=== PATIENT | female | born 1970 | race Caucasian/White ===

== ENCOUNTER 2018-02-24 08:41 | Emergency (ER) | payer MEDICAID, OTHER, SELFPAY ==
[~2018-02-24] VITALS: Ht 157.5 cm; Wt 115.3 kg
[2018-02-24 08:46] VITALS: BP 138/100
== END 2018-02-24 09:58 | disposition home or self-care (01) ==
LOC: ED 09:52
DX: R53.1 Weakness (principal); R09.02 Hypoxemia
CPT/HCPCS: 93005; 99283

== ENCOUNTER 2018-05-02 11:27 | Emergency (ER) | payer OTHER ==
[~2018-05-02] VITALS: Ht 157.5 cm; Wt 118.6 kg
[2018-05-02] MEDS ORDERED: IBUPROFEN 200 MG TABLET ONE (12:16)
[2018-05-02 12:25] LABS: BASOPHILS # (AUTO) 0.04 x10^3/uL (0-0.1); BASOPHILS % (AUTO) 1 % (0-1); EOSINOPHILS # (AUTO) 0.29 x10^3/uL (0-0.4); EOSINOPHILS % (AUTO) 4 % (1-7); LYMPHOCYTES # (AUTO) 2.57 x10^3/uL (1-3.4); LYMPHOCYTES % (AUTO) 33 % (22-44); MD NO; MEAN CORPUSCULAR HEMOGLOBIN 29.3 pg (27.0-34.8); MEAN CORPUSCULAR HGB CONC 33.6 g/dL (32.4-35.8); MEAN CORPUSCULAR VOLUME 87.1 fL (80-100); MEAN PLATELET VOLUME 9.4 fL (7.4-10.4); MONOCYTES # (AUTO) 0.45 x10^3/uL (0.2-0.8); MONOCYTES % (AUTO) 6 % (2-9); NEUTROPHILS # (AUTO) 4.55 x10^3/uL (1.8-6.8); NEUTROPHILS % (AUTO) 58 % (42-75); PLATELET COUNT 261 x10^3/uL (130-400); RED BLOOD COUNT 5.14 x10^6/uL (3.82-5.3); RED CELL DISTRIBUTION WIDTH 12.6 % (9.6-15.2)
[2018-05-02 12:28] LABS: ALBUMIN 3.8 g/dL (3.4-5.0); ANION GAP 5 mmol/L (5-15); CALCIUM 8.9 mg/dL (8.5-10.1); CHLORIDE 104 mmol/L (98-107); CREATININE 0.84 mg/dL (0.55-1.02)
[2018-05-02 12:31] LABS: TROPONIN I < 0.015 ng/mL (0.000-0.045)
[2018-05-02] MEDS ORDERED: LORazepam 1MG TABLET ONE (13:11)
[2018-05-02] MEDS ORDERED: IBUPROFEN 200 MG TABLET PO ONE (13:30)
[2018-05-02] MEDS ORDERED: LORazepam 1MG TABLET PO ONE (13:30)
[2018-05-02 14:05] VITALS: BP 142/95
== END 2018-05-02 14:07 | disposition home or self-care (01) ==
LOC: ED 12:39
DX: R06.00 Dyspnea, unspecified (principal)
CPT/HCPCS: 36415; 71045; 80048; 82040; 84484; 85025; 85379; 93005; 99285

== ENCOUNTER 2019-01-18 10:53 | Emergency (ER) | payer MEDICAID ==
[~2019-01-18] VITALS: Ht 157.5 cm; Wt 112.2 kg
--- NOTE | 2019-01-18 11:12 | NUR ---
UA CUP GIVEN
[2019-01-18] MEDS ORDERED: KETOROLAC 30 MG/1 ML IVPush ONE (11:30)
[2019-01-18] MEDS ORDERED: METHOCARBAMOL 750 MG TABLET PO ONE (11:30)
[2019-01-18] MEDS ORDERED: SODIUM CHLORIDE FLUSH 10ML SYR IVF ONE (11:30)
[2019-01-18] MEDS ORDERED: ONDANSETRON 2MG/ML, 2ML IVPush ONE (11:30)
[2019-01-18] MEDS ORDERED: METHOCARBAMOL 750 MG TABLET ONE (11:34)
[2019-01-18] MEDS ORDERED: ONDANSETRON 2MG/ML, 2ML ONE (11:34)
[2019-01-18] MEDS ORDERED: KETOROLAC 30 MG/1 ML ONE (11:34)
[2019-01-18] MEDS ORDERED: HYDROmorphone 2 MG/ML, 1ML ONE ×3 (11:35→14:23)
--- NOTE | 2019-01-18 11:35 | NUR ---
pt has c o of "back pain started yesterday afternoon. it feels like spasms" ua obtained. pain 03/29. vs stable
[2019-01-18] MEDS: HYDROmorphone 2 MG/ML, 1ML IVPush PRN ×2 (11:42→12:58)
[2019-01-18 12:08] LABS: MICROSCOPIC NOT IND
[2019-01-18 12:09] LABS: CULTURE INDICATED? NO
--- NOTE | 2019-01-18 12:51 | NUR ---
PT AMUBLATED TO BATHROOM. PT STATES "PAIN WAS BETTER BUT IS NOW COMING BACK"
[2019-01-18 13:26] LABS: BASOPHILS # (AUTO) 0.16 x10^3/uL (0-0.1); BASOPHILS % (AUTO) 2 % (0-1); EOSINOPHILS # (AUTO) 0.31 x10^3/uL (0-0.4); EOSINOPHILS % (AUTO) 4 % (1-7); LYMPHOCYTES # (AUTO) 2.71 x10^3/uL (1-3.4); LYMPHOCYTES % (AUTO) 35 % (22-44); MD NO; MEAN CORPUSCULAR HEMOGLOBIN 28.5 pg (27.0-34.8); MEAN CORPUSCULAR HGB CONC 32.7 g/dL (32.4-35.8); MEAN CORPUSCULAR VOLUME 87.2 fL (80-100); MEAN PLATELET VOLUME 8.9 fL (7.4-10.4); MONOCYTES % (AUTO) 7 % (2-9); NEUTROPHILS % (AUTO) 52 % (42-75); PLATELET COUNT 233 x10^3/uL (130-400); RED CELL DISTRIBUTION WIDTH 12.9 % (9.6-15.2)
[2019-01-18 13:34] LABS: ANION GAP 4 mmol/L (5-15); CALCIUM 9.2 mg/dL (8.5-10.1); CHLORIDE 104 mmol/L (98-107); CREATININE 0.82 mg/dL (0.55-1.02)
[2019-01-18 14:11] VITALS: BP 121/82
--- NOTE | 2019-01-18 14:12 | NUR ---
PT REQUESTED CRACKERS AND DRINK. PT RESTIN COMFORTABLE. PT STATES PAIN IS 5/10
[2019-01-18] MEDS ORDERED: HYDROmorphone 2 MG/ML, 1ML IVPush PRN (14:30)
--- NOTE | 2019-01-18 14:49 | NUR ---
Patient/Caregiver given discharge instructions and they have confirmed that they understand the instructions. Patient ambulatory with steady gait.
== END 2019-01-18 14:52 | disposition home or self-care (01) ==
LOC: ED 14:46
DX: M43.17 Spondylolisthesis, lumbosacral region (principal)
CPT/HCPCS: 36415; 71046; 74176; 80048; 81003; 82040; 85025; 85379; 96374; 96375; 96376; 99284; J1170; J1885; J2405

== ENCOUNTER 2020-06-20 09:29 | Emergency (ER) | payer MEDICAID ==
[~2020-06-20] VITALS: Ht 157.5 cm; Wt 118.8 kg
[2020-06-20] MEDS ORDERED: maalox/diphenh/lido/sucralfate 5 ML PO PRN (10:30)
[2020-06-20 10:34] VITALS: BP 170/96
== END 2020-06-20 11:16 | disposition home or self-care (01) ==
LOC: ED 10:21
DX: K12.0 Recurrent oral aphthae (principal); I10 Essential (primary) hypertension; K13.79 Other lesions of oral mucosa
CPT/HCPCS: 99282

== ENCOUNTER 2020-12-10 13:54 | Emergency (ER) | payer MEDICAID ==
[~2020-12-10] VITALS: Ht 157.5 cm; Wt 118.3 kg
[2020-12-10 14:29] LABS: BASOPHILS % (AUTO) 1 % (0-1); EOSINOPHILS % (AUTO) 4 % (1-7); LYMPHOCYTES % (AUTO) 21 % (22-44); MEAN CORPUSCULAR HEMOGLOBIN 28.5 pg (27.0-34.8); MEAN CORPUSCULAR HGB CONC 33.4 g/dL (32.4-35.8); MEAN PLATELET VOLUME 8.4 fL (7.4-10.4); MONOCYTES % (AUTO) 6 % (2-9); NEUTROPHILS % (AUTO) 68 % (42-75); PLATELET COUNT 187 x10^3/uL (130-400); RED BLOOD COUNT 5.37 x10^6/uL (3.82-5.3); RED CELL DISTRIBUTION WIDTH 14.2 % (9.6-15.2)
[2020-12-10 14:33] LABS: ALBUMIN 3.5 g/dL (3.4-5.0); CHLORIDE 104 mmol/L (98-107); CREATININE 0.68 mg/dL (0.55-1.02)
[2020-12-10 14:36] LABS: TROPONIN I < 0.015 ng/mL (0.000-0.045)
[2020-12-10 14:40] LABS: MD NO
[2020-12-10 14:41] LABS: ANION GAP 4 mmol/L (5-15)
[2020-12-10] MEDS ORDERED: ALPR1TAB2 PO (14:42)
[2020-12-10] MEDS ORDERED: METH40TA3 PO (14:42)
[2020-12-10] MEDS ORDERED: DIVA500T2 PO (14:42)
[2020-12-10] MEDS ORDERED: SERT50TA PO (14:42)
[2020-12-10] MEDS ORDERED: HYDROmorphone 1 MG/ML, 1ML INJ ONE (15:36)
[2020-12-10] MEDS ORDERED: HYDROmorphone 2 MG/ML, 1ML ONE (15:39)
[2020-12-10 15:43] VITALS: BP 176/99
--- NOTE | 2020-12-10 15:44 | NUR ---
PT MED NOTED FOR PAIN
[2020-12-10] MEDS ORDERED: ONDANSETRON ODT 4 MG ONE (15:47)
[2020-12-10] MEDS ORDERED: ONDANSETRON ODT 4 MG PO ONE (16:00)
[2020-12-10] MEDS ORDERED: HYDROmorphone 2 MG/ML, 1ML IM ONE (16:00)
--- NOTE | 2020-12-10 16:21 | NUR ---
ALL TEST RESULTED, CHART UP FOR RECHECK. PT AWARE
--- NOTE | 2020-12-10 16:23 | NUR ---
PT RPTS PAIN REMAINS 04/28, VSS
--- NOTE | 2020-12-10 17:06 | NUR ---
Patient/Caregiver given discharge instructions and they have confirmed that they understand the instructions. Patient ambulatory with steady gait.
== END 2020-12-10 17:07 | disposition home or self-care (01) ==
LOC: ED 14:52
DX: M79.661 Pain in right lower leg (principal); M79.662 Pain in left lower leg; R51.9 Headache, unspecified; R94.31 Abnormal electrocardiogram [ECG] [EKG]; I10 Essential (primary) hypertension
CPT/HCPCS: 36415; 70450; 71045; 80048; 82040; 83880; 84484; 85025; 93005; 93970; 96372; 99285; J1170